=== PATIENT | female | born 1955 | race Caucasian/White ===

== ENCOUNTER 2023-12-06 13:58 | Emergency (ER) | payer MEDICARE, BC, SELFPAY ==
[2023-12-06 14:05] VITALS: BP 152/82
--- NOTE | 2023-12-06 14:46 | ED.GENMED ---
History of Present Illness
General
Chief Complaint: Fall
Time Seen by Provider: 12/06/23 14:40
History of Present Illness
History of Present Illness:
68-year-old female presents to the emergency department for evaluation of left posterior thigh pain beginning after a mechanical fall. She fell backward while holding the door open at the pool. Fell onto her buttock. Uncertain of the exact
mechanism of her injury. She is able to ambulate.
Review of Systems
Review of Systems
Allergies reviewed?: Yes
All Other Systems: ROS reviewed and negative except as documented in HPI and ROS
Phy Exam
Physical Exam
Physical Exam:
GEN: Well appearing, NAD, WDWN
HEENT: Oral mucosa moist, no scleral icterus
Cardiac: Regular rate
Lung: No respiratory distress, no tachypnea
MSK: No gross deformity or injuries. Left hip range of motion normal in all shanks without reproduction of pain. Increased pain with straight leg raise.
Skin: Good color, no pallor or jaundice, no rashes
Neuro: AO x3, moves all extremities freely
Psych: Calm, cooperative
Course
Orders/Labs/Results
Orders:
Orders
12/06/23 14:46
CR Hip - LT w/wo Pel 2-3 Vw* Urgent
Comment:
Reason For Exam: fall
Include a pelvis x-ray?: Yes
Vital Signs
Initial and Last Documented VS:
Initial Vital Signs
Temp Pulse Resp BP Pulse Ox
98.3 F 74 16 152/82 98
12/06/23 14:05 12/06/23 14:05 12/06/23 14:12/06/23 14:12/06/23 14:05
Last Documented Vital Signs
Temp Pulse Resp BP Pulse Ox
98.3 F 74 16 152/82 98
12/06/23 14:05 12/06/23 14:05 12/06/23 14:05 12/06/23 14:05 12/06/23 14:05
MDM/Problems Addressed
MDM/Problems Addressed:
X-rays of the left hip and pelvis show no osseous abnormality. Clinically the patient most likely has a left hamstring rupture versus severe strain. Discussed supportive care and orthopedic outpatient follow-up
*Critical Care Note
Total Time (30-74mins, 75-104mins- exclusive of procedures): Not Applicable
ED Attending Note
-
Portions of this chart may have been created with voice recognition software.� Occasional wrong word or��sound alike� substitutions may have occurred due to the inherent limitations of voice recognition software.
Discharge Plan
Departure
Patient Disposition: Home (Routine Discharge)
Date of Disposition: 12/06/23
Time of Disposition: 15:48
Patient with high blood pressure during this ER visit?: No
Discharge Problem:
Left hamstring muscle strain
Instructions: Hamstring Muscle Strain (DC)
Prescriptions:
No Action
ergocalciferol (vitamin D2) 400 unit Capsule
800 unit PO DAILY
ferrous sulfate [iron] 325 mg (65 mg iron) Tablet
65 mg PO DAILY
irbesartan 75 mg Tablet
75 mg PO HS
diltiazem HCl 180 mg Capsule,Ext.Rel 24h Degradable
180 mg PO DAILY
ezetimibe 10 mg Tablet
10 mg PO DAILY
rosuvastatin 40 mg Tablet
40 mg PO DAILY
Xarelto 20 mg Tablet
20 mg PO QPM
Multivitamin Women 50 Plus
1 unit PO DAILY
Vitamin C
500 mg PO DAILY
Referrals:
Dawood Arita MD [Active] -
Interventions
Interventions:
*General Assessment Last Done: 12/06/23 16:10
*Nursing Disposition Last Done: 12/06/23 16:10
ED-Musculoskeletal Assessment Last Done: 12/06/23 14:50
ED- Neurological Assessment Last Done: 12/06/23 14:50
ED-Skin Assessment Last Done: 12/06/23 16:11
Discharge Date and Time
Discharge Date/Time: 12/06/23 16:11
Print Language: WELSH
== END 2023-12-06 16:11 | disposition home or self-care (01) ==
LOC: EMR 13:58
PROVIDERS: EMERGENCY PHYSICIAN Student in an Organized Health Care Education/Training Program; FAMILY PHYSICIAN Physician Assistant
DX: S76.312A Strain of muscle, fascia and tendon of the posterior muscle group at thigh level, left thigh, initial encounter (principal); W19.XXXA Unspecified fall, initial encounter; Y93.89 Activity, other specified; Y92.89 Other specified places as the place of occurrence of the external cause
CPT/HCPCS: 99283; 73502

== ENCOUNTER → 2024-03-07 06:21 | Day surgery (SDC) | payer MEDICARE, BC, SELFPAY | LOC: GI 06:21 | PROVIDERS: ATTENDING PHYSICIAN Internal Medicine Gastroenterology; FAMILY PHYSICIAN Physician Assistant | DX: Z08 Encounter for follow-up examination after completed treatment for malignant neoplasm (principal); Z85.038 Personal history of other malignant neoplasm of large intestine; Z98.0 Intestinal bypass and anastomosis status; K57.30 Diverticulosis of large intestine without perforation or abscess without bleeding; Z86.0100 Personal history of colon polyps, unspecified | CPT/HCPCS: 45378 ==

== ENCOUNTER → 2024-04-21 07:18 | Outpatient (REF) | payer MEDICARE, BC, SELFPAY | LOC: HWRAD 07:18 | PROVIDERS: ATTENDING PHYSICIAN Physician Assistant | DX: R94.5 Abnormal results of liver function studies (principal) | CPT/HCPCS: 76700 ==

== ENCOUNTER → 2024-05-24 07:13 | Outpatient (REF) | payer MEDICARE, BC, SELFPAY | LOC: RAD 07:13 | PROVIDERS: ATTENDING PHYSICIAN Surgery; FAMILY PHYSICIAN Physician Assistant | DX: Z85.030 Personal history of malignant carcinoid tumor of large intestine (principal) | CPT/HCPCS: 71260; 74177; Q9967 ==